=== PATIENT | male | born 1995 | race Caucasian/White ===

== ENCOUNTER 2017-10-06 17:38 | Emergency (ER) | payer BC ==
[2017-10-06] MEDS ORDERED: NA CHLORIDE 0.9% 1,000 ML ONE (17:58)
[2017-10-06 18:18] LABS: Absolute Lymphocytes (CBC) 2.4 K/uL (0.7-4.9); Absolute Monocytes 0.9 K/uL (0.1-1.3); Absolute Neutrophil 5.4 K/uL (1.8-8.0); Basophils % 0.3 % (0-1.3); Eosinophils % 7.2 % (0-4.4); Hematocrit 47.4 % (39.6-49.0); Lymphocytes % 25.7 % (15.3-44.8); MCH 30.5 pg (27.0-35.0); MCV 87.8 fL (80-100); MPV 8.5 fL (7.6-11.3); Monocytes % 9.1 % (3.3-12.3)
[2017-10-06 18:26] LABS: Barbiturates NEGATIVE; Benzodiazepines NEGATIVE; Cocaine NEGATIVE; METHAMPHETAM NEGATIVE; Opiates NEGATIVE; Phencyclidine NEGATIVE; THC Cannibis POSITIVE
[2017-10-06] MEDS ORDERED: TETANUS & DIPHTHERIA TOX,ADULT 0.5 ML VIAL ONE (18:36)
[2017-10-06 18:38] LABS: Potassium 3.5 mEq/L (3.6-5.0)
--- NOTE | 2017-10-06 18:49 | RAD REPORT ---
EXAM DESCRIPTION: RAD - Chest Pa And Lat (2 Views) - 10/06/2017 6:21 pm CLINICAL HISTORY: Chest pain. COMPARISON: 09/21/2011 FINDINGS: The lungs are clear. The heart is normal in size. No displaced fractures. IMPRESSION: No acute or concerning finding suspected.
[2017-10-06 18:55] LABS: Urine Blood NEGATIVE (NEG); Urine Glucose NEGATIVE (NEG); Urine Protein NEGATIVE (NEG); Urine pH 7.5 (5.0-7.0)
--- NOTE | 2017-10-06 19:01 | ER ---
Nurse's Notes [facility] Name: Wilder Martinez Age: 22 yrs Sex: Male : 1995 Arrival Date: 10/06/2017 Time: 17:40 Bed 28 Private MD: Diagnosis: Chest pain on breathing;Drug abuse counseling and surveillance Presentation: 10/06 17:43 Presenting complaint: Patient states: my heart has been hurting and my chest hurts in tw2 the rib area and in the back, and i have had it speed up and slow down. Transition of care: patient was not received from another setting of care. Onset of symptoms was October 06, 2017. Care prior to arrival: None. 17:43 Method Of Arrival: Ambulatory tw2 17:43 Acuity: HARPER 3 tw2 Historical: - Allergies: 17:45 No Known Allergies; tw2 - Home Meds: 17:45 None [Active]; tw2 - PMHx: 17:45 None; tw2 - PSHx: 17:45 None; tw2 - Immunization history:: Adult Immunizations unknown. - Social history:: Smoking status: Patient uses tobacco products, smokes one-half pack cigarettes per day, Patient uses street drugs, cocaine, marijuana, 3 days ago, cocaine and esctasy and mushrooms. Screenin:11 Abuse screen: Denies threats or abuse. Nutritional screening: No deficits noted. kb1 Tuberculosis screening: No symptoms or risk factors identified. Fall Risk IV access (20 points). Assessment: 18:11 General: Appears in no apparent distress. Behavior is cooperative. Pain: Complains of kb1 pain in chest Pain does not radiate. Pain began Thursday. Neuro: Level of Consciousness is awake, alert, obeys commands, Oriented to person, place, time, situation. Cardiovascular: Patient's skin is warm and dry. Respiratory: Airway is patent. GI: No signs and/or symptoms were reported involving the gastrointestinal system. : No signs and/or symptoms were reported regarding the genitourinary system. 18:42 Reassessment: Patient appears in no apparent distress at this time. Patient and/or kb1 family updated on plan of care and expected duration. Pain level reassessed. Patient is alert, oriented x 3, equal unlabored respirations, skin warm/dry/pink. Family at bedside. 19:19 Reassessment: Patient appears in no apparent distress at this time. Patient and/or kb1 family updated on plan of care and expected duration. Pain level reassessed. Patient is alert, oriented x 3, equal unlabored respirations, skin warm/dry/pink. Vital Signs: 17:45 BP 162 / 101; Pulse 70; Resp 18; Temp 98.5(O); Pulse Ox 100% on R/A; Weight 74.84 kg tw2 (R); Height 5 ft. 9 in. (175.26 cm); Pain 3/10; 18:42 BP 147 / 93; Pulse 74; Resp 18; Pulse Ox 100% ; kb1 19:19 BP 138 / 84; Pulse 71; Resp 18; Pulse Ox 98% ; kb1 17:45 Body Mass Index 24.37 (74.84 kg, 175.26 cm) tw2 ED Course: 17:40 Patient arrived in ED. as 17:43 Triage completed. tw2 17:45 Arm band placed on. tw2 17:48 Alexa Alexander, MONIK is Primary Nurse. kb1 17:52 Sweta Rouse FNP-C is PHCP. snw 17:52 Cleve Mishra MD is Attending Physician. snw 17:57 EKG done, by tractor trailer technician. reviewed by Leon Newton MD. at1 18:11 Patient has correct armband on for positive identification. Bed in low position. Call kb1 light in reach. front desk monitor on. Pulse ox on. NIBP on. 18:11 No provider procedures requiring assistance completed. Inserted saline lock: 20 gauge kb1 in left antecubital area, using aseptic technique. Blood collected. Patient maintains SpO2 saturation greater than 95% on room air. 18:16 Patient moved to radiology via wheelchair. bb2 18:16 X-ray completed. Patient tolerated procedure well. bb2 18:16 Patient moved back from radiology. bb2 18:17 Chest Pa And Lat (2 Views) XRAY In Process Unspecified. EDMS 19:28 IV discontinued, intact, bleeding controlled, No redness/swelling at site. Pressure kb1 dressing applied. Administered Medications: 18:14 Drug: NS 0.9% 1000 ml Route: IV; Rate: 1 bolus; Site: left antecubital; kb1 19:27 Follow up: IV Status: Completed infusion kb1 18:41 Drug: Tetanus-Diphtheria Toxoid Adult 0.5 ml {It Compliance Analyst: [employer]. Exp: kb1 01/29/2020. Lot #: [id number]. } Route: IM; Site: left deltoid; 19:19 Follow up: Response: No adverse reaction kb1 Outcome: 19:00 Discharge ordered by MD. azul 19:28 Discharged to home ambulatory, with family. kb1 19:28 Condition: stable 19:28 Discharge instructions given to patient, Instructed on discharge instructions, Demonstrated understanding of instructions, follow-up care, medications, Prescriptions given X 1. 19:30 Patient left the ED. kb1 Signatures: Dispatcher [employer] EDMS Sweta Rouse, APPLICATIONS SUPPORT LEAD-C APPLICATIONS SUPPORT LEAD-CsnVernell Greenberg Amanda, animal handler EKG Tat1 Chery Gutierrez, RN RN tw2 Alisa Sarah bb2 Alexa Alexander RN RN kb1
--- NOTE | 2017-10-06 19:01 | EDPHYS ---
Physician Documentation [facility] Name: Wilder Martinez Age: 22 yrs Sex: Male : 1995 Arrival Date: 10/06/2017 Time: 17:40 Bed 28 Private MD: ED Physician Cleve Mishra HPI: 10/06 21:49 This 22 yrs old Male presents to ER via Ambulatory with complaints of Chest snw Pain, Irregular Pulse. 21:49 Onset: The symptoms/episode began/occurred suddenly, 2 day(s) ago, and became snw persistent. Associated signs and symptoms: Pertinent positives: chest pain, palpitations. Modifying factors: The patient symptoms are alleviated by nothing, the patient symptoms are aggravated by movement. The patient has not experienced similar symptoms in the past. It is unknown whether or not the patient has recently seen a physician. + substance abuse over the weekend. Historical: - Allergies: 17:45 No Known Allergies; tw2 - Home Meds: 17:45 None [Active]; tw2 - PMHx: 17:45 None; tw2 - PSHx: 17:45 None; tw2 - Immunization history:: Adult Immunizations unknown. - Social history:: Smoking status: Patient uses tobacco products, smokes one-half pack cigarettes per day, Patient uses street drugs, cocaine, marijuana, 3 days ago, cocaine and esctasy and mushrooms. ROS: 21:49 Constitutional: Negative for fever, chills, and weight loss, Eyes: Negative for injury, snw pain, redness, and discharge, ENT: Negative for injury, pain, and discharge, Neck: Negative for injury, pain, and swelling, Respiratory: Negative for shortness of breath, cough, wheezing, and pleuritic chest pain, Abdomen/GI: Negative for abdominal pain, nausea, vomiting, diarrhea, and constipation, Back: Negative for injury and pain, : Negative for injury, bleeding, discharge, and swelling, MS/Extremity: Negative for injury and deformity, Skin: Negative for injury, rash, and discoloration, Neuro: Negative for headache, weakness, numbness, tingling, and seizure. 21:49 Cardiovascular: Positive for chest pain, palpitations. Exam: 21:47 Constitutional: This is a well developed, well nourished patient who is awake, alert, snw and in no acute distress. Head/Face: Normocephalic, atraumatic. Eyes: Pupils equal round and reactive to light, extra-ocular motions intact. Lids and lashes normal. Conjunctiva and sclera are non-icteric and not injected. Cornea within normal limits. Periorbital areas with no swelling, redness, or edema. ENT: Nares patent. No nasal discharge, no septal abnormalities noted. Tympanic membranes are normal and external auditory canals are clear. Oropharynx with no redness, swelling, or masses, exudates, or evidence of obstruction, uvula midline. Mucous membranes moist. Neck: Trachea midline, no thyromegaly or masses palpated, and no cervical lymphadenopathy. Supple, full range of motion without nuchal rigidity, or vertebral point tenderness. No Meningismus. Chest/axilla: Normal chest wall appearance and motion. Nontender with no deformity. No lesions are appreciated. Cardiovascular: Regular rate and rhythm with a normal S1 and S2. No gallops, murmurs, or rubs. Normal PMI, no JVD. No pulse deficits. Respiratory: Lungs have equal breath sounds bilaterally, clear to auscultation and percussion. No rales, rhonchi or wheezes noted. No increased work of breathing, no retractions or nasal flaring. Abdomen/GI: Soft, non-tender, with normal bowel sounds. No distension or tympany. No guarding or rebound. No evidence of tenderness throughout. Back: No spinal tenderness. No costovertebral tenderness. Full range of motion. MS/ Extremity: Pulses equal, no cyanosis. Neurovascular intact. Full, normal range of motion. Neuro: Awake and alert, GCS 15, oriented to person, place, time, and situation. Cranial nerves II-XII grossly intact. Motor strength 5/5 in all extremities. Sensory grossly intact. Cerebellar exam normal. Normal gait. Psych: Awake, alert, with orientation to person, place and time. Behavior, mood, and affect are within normal limits. 21:47 Skin: Appearance: normal except for affected area, injury, abrasion(s), small abrasion noted, of the bilateral legs. Vital Signs: 17:45 BP 162 / 101; Pulse 70; Resp 18; Temp 98.5(O); Pulse Ox 100% on R/A; Weight 74.84 kg tw2 (R); Height 5 ft. 9 in. (175.26 cm); Pain 3/10; 18:42 BP 147 / 93; Pulse 74; Resp 18; Pulse Ox 100% ; kb1 19:19 BP 138 / 84; Pulse 71; Resp 18; Pulse Ox 98% ; kb1 17:45 Body Mass Index 24.37 (74.84 kg, 175.26 cm) tw2 MDM: 17:54 Patient medically screened. lucio 21:48 Data reviewed: vital signs, nurses notes. Data interpreted: Pulse oximetry: on room air snw is 98 %. Interpretation: normal. Counseling: I had a detailed discussion with the patient and/or guardian regarding: the historical points, exam findings, and any diagnostic results supporting the discharge/admit diagnosis, the presence of at least one elevated blood pressure reading (>120/80) during this emergency department visit, lab results, radiology results, to return to the emergency department if symptoms worsen or persist or if there are any questions or concerns that arise at home. Special discussion: Based on the patient's history, exam, and Dx evaluation, there is no indication for emergent intervention or inpatient Tx. It is understood by the patient/guardian that if the Sx's persist or worsen they need to return immediately for re-evaluation. I have referred the patient to see his PCP for further evaluation of high blood pressure. Based on the history and exam findings, there is no indication for further emergent testing or inpatient evaluation. I discussed with the patient/guardian the need to see the primary care provider for further evaluation of the symptoms. Drug abuse counseling. 10/06 17:53 Order name: UDS snw 10/06 17:53 Order name: CBC with Diff; Complete Time: 18:25 snw 10/06 17:53 Order name: Chem 7; Complete Time: 18:43 snw 10/06 17:53 Order name: Troponin (emerg Dept Use Only); Complete Time: 18:57 snw 10/06 17:56 Order name: CPK; Complete Time: 18:43 snw 10/06 18:12 Order name: Urine Dipstick--Ancillary (enter results); Complete Time: 18:57 ag 10/06 17:53 Order name: Chest Pa And Lat (2 Views) XRAY; Complete Time: 18:57 snw 10/06 17:59 Order name: EKG Electrocardiogram EDMS Administered Medications: 18:14 Drug: NS 0.9% 1000 ml Route: IV; Rate: 1 bolus; Site: left antecubital; kb1 19:27 Follow up: IV Status: Completed infusion kb1 18:41 Drug: Tetanus-Diphtheria Toxoid Adult 0.5 ml {Opthalmic Tech: Ring. Exp: kb1 01/29/2020. Lot #: [id number]. } Route: IM; Site: left deltoid; 19:19 Follow up: Response: No adverse reaction kb1 Disposition: 10/07 07:11 Co-signature as Attending Physician, Cleve Mishra MD I agree with the assessment and the [facility] plan of care. Disposition: 10/06/17 19:00 Discharged to Home. Impression: Chest pain on breathing, Drug abuse counseling and surveillance. - Condition is Stable. - Discharge Instructions: Alcohol and Drug Addiction, Finding Treatment, Chest Wall Pain, Costochondritis. - Prescriptions for Diclofenac Sodium 75 mg Oral Tablet Sustained Release - take 1 tablet by ORAL route 2 times per day; 30 tablet. - Work release form, Medication Reconciliation Form, Thank You Letter, Antibiotic Education, Prescription Opioid Use form. - Follow up: Private Physician; When: 2 - 3 days; Reason: Recheck today's complaints, Continuance of care, Re-evaluation by your physician. Follow up: Emergency Department; When: As needed; Reason: Worsening of condition. Signatures: Dispatcher [employer] Cleve Roth MD MD cha Therrien, Shelly, E COMMERCE RETAILER-C E COMMERCE RETAILER-Csnw Chery Gutierrez RN RN tw2 Alexa Alexander RN RN kb1
[2017-10-06 19:36] VITALS: TEMP 98.5
[2017-10-06 19:38] VITALS: BP 138/84; O2SAT 98
--- NOTE | 2017-10-07 08:00 | EKG ---
Test Date: 2017-10-06 Test Time: 17:47:46 Laser Beam Machine Operator: ISACC MEASUREMENT RESULTS: Intervals: Rate: 74 VA: 138 QRSD: 92 QT: 364 QTc: 404 [place]: P: 56 VA: 138 QRS: 71 T: 55 INTERPRETIVE STATEMENTS: Normal sinus rhythm Normal ECG No previous ECG available for comparison Electronically Signed On 10-07-17 07:58:37 CDT by Minh Mari
== END 2017-10-06 19:30 | disposition home or self-care (01) ==
LOC: ER 17:38
DX: R07.9 Chest pain, unspecified (principal); F12.90 Cannabis use, unspecified, uncomplicated; F14.90 Cocaine use, unspecified, uncomplicated; F15.90 Other stimulant use, unspecified, uncomplicated; F17.210 Nicotine dependence, cigarettes, uncomplicated; Z71.51 Drug abuse counseling and surveillance of drug abuser
CPT/HCPCS: 36415; 71046; 80048; 80307; 81003; 82550; 84484; 85025; 90714; 93005; 96360; 99285; J7030

== ENCOUNTER 2019-03-27 14:48 | Emergency (ER) | payer BC ==
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
[2019-03-27] MEDS ORDERED: IBUPROFEN 400 MG TAB ONE (15:47)
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
== END 2019-03-27 16:22 | disposition home or self-care (01) ==
LOC: ER 14:48
DX: S60.221A Contusion of right hand, initial encounter (principal); W50.0XXA Accidental hit or strike by another person, initial encounter
CPT/HCPCS: 99284

== ENCOUNTER 2019-09-10 00:34 | Emergency (ER) | payer BC ==
[2019-09-10] MEDS ORDERED: LIDOCAINE 1% 20 ML MDV ONE (03:47)
[2019-09-10] MEDS ORDERED: CEFAZOLIN SODIUM 1 GM/VIAL ONE (05:39)
[2019-09-10] MEDS ORDERED: TETANUS & DIPHTHERIA TOX,ADULT 0.5 ML VIAL ONE (05:39)
[2019-09-10] MEDS ORDERED: WATER FOR INJ,STERILE 10 ML ONE (05:39)
[2019-09-10] MEDS ORDERED: IBUPROFEN 400 MG TAB ONE (05:39)
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
--- NOTE | 2019-09-10 05:43 | EDPHYS ---
Physician Documentation [facility] Name: Wilder Martinez Age: 24 yrs Sex: Male : 1995 Arrival Date: 09/10/2019 Time: 00:39 Bed 14 Private MD: ED Physician Peter Dunlap HPI: 09/09 05:33 This 24 yrs old Male presents to ER via Ambulatory with complaints of tw4 Laceration to eye. 05:33 The patient or guardian reports pain. The complaints affect the left eye. Context of tw4 injury: The problem was sustained outdoors. Onset: The symptoms/episode began/occurred today. Associated signs and symptoms: Loss of consciousness: This patient did not experience any loss of consciousness. Severity of symptoms: At their worst the symptoms were moderate, in the emergency department the symptoms are unchanged. The patient has not experienced similar symptoms in the past. Historical: - Allergies: 01:13 No Known Allergies; lp1 - Home Meds: 01:13 None [Active]; lp1 - PMHx: 01:13 None; lp1 - PSHx: 01:13 None; lp1 - Immunization history:: Adult Immunizations up to date, Last tetanus immunization: unknown. - Social history:: Smoking status: Patient reports the use of cigarette tobacco products, smokes one-half pack cigarettes per day. ROS: 05:33 Constitutional: Negative for fever, chills, and weight loss, Eyes: Negative for injury, tw4 pain, redness, and discharge, Cardiovascular: Negative for chest pain, palpitations, and edema, Respiratory: Negative for shortness of breath, cough, wheezing, and pleuritic chest pain, Abdomen/GI: Negative for abdominal pain, nausea, vomiting, diarrhea, and constipation, Back: Negative for injury and pain, MS/Extremity: Negative for injury and deformity, Neuro: Negative for headache, weakness, numbness, tingling, and seizure. 05:33 Skin: Positive for laceration(s). Exam: 05:33 Constitutional: This is a well developed, well nourished patient who is awake, alert, tw4 and in no acute distress. Chest/axilla: Normal chest wall appearance and motion. Nontender with no deformity. No lesions are appreciated. 05:33 Head/face: Noted is contusion, that is deep, of the left eye, hematoma, that is moderate, of the left eye, a laceration(s), that is superficial, 6 cm(s). Vital Signs: 01:15 BP 137 / 85; Pulse 115; Resp 18; Temp 99.3(O); Pulse Ox 98% on R/A; Weight 108.86 kg lp1 (R); Height 5 ft. 10 in. (177.80 cm); Pain 4/10; 01:20 BP 142 / 67; Pulse 102; Resp 20; Pulse Ox 100% on R/A; Pain 4/10; lw1 02:15 BP 140 / 70; Pulse 117; Resp 18; Pulse Ox 100% on R/A; sg 03:15 BP 142 / 72; Pulse 112; Resp 18; Pulse Ox 100% on R/A; sg 05:15 BP 146 / 82; Pulse 108; Resp 16; Temp 98.7(TE); Pulse Ox 99% on R/A; sg 06:10 BP 145 / 97; Pulse 114; Resp 20; Temp 99.0; Pulse Ox 100% on R/A; Pain 6/10; lw1 01:15 Body Mass Index 34.44 (108.86 kg, 177.80 cm) lp1 Ethan Coma Score: 01:20 Eye Response: spontaneous(4). Verbal Response: oriented(5). Motor Response: obeys lw1 commands(6). Total: 15. 01:20 Eye Response: spontaneous(4). Verbal Response: oriented(5). Motor Response: obeys lw1 commands(6). Total: 15. 02:15 Eye Response: spontaneous(4). Verbal Response: oriented(5). Motor Response: obeys sg commands(6). Total: 15. 03:15 Eye Response: spontaneous(4). Verbal Response: oriented(5). Motor Response: obeys sg commands(6). Total: 15. 05:15 Eye Response: spontaneous(4). Verbal Response: oriented(5). Motor Response: obeys sg commands(6). Total: 15. 05:33 Eye Response: spontaneous(4). Verbal Response: oriented(5). Motor Response: obeys tw4 commands(6). Total: 15. 05:33 Eye Response: spontaneous(4). Verbal Response: oriented(5). Motor Response: obeys tw4 commands(6). Total: 15. Trauma Score (Adult): 01:20 Eye Response: spontaneous(1); Verbal Response: oriented(1); Motor Response: obeys lw1 commands(2); Systolic BP: > 89 mm Hg(4); Respiratory Rate: 10 to 29 per min(4); Ethan Score: 15; Trauma Score: 12 01:20 Eye Response: spontaneous(1); Verbal Response: oriented(1); Motor Response: obeys lw1 commands(2); Systolic BP: > 89 mm Hg(4); Respiratory Rate: 10 to 29 per min(4); Ethan Score: 15; Trauma Score: 12 02:15 Eye Response: spontaneous(1); Verbal Response: oriented(1); Motor Response: obeys sg commands(2); Systolic BP: > 89 mm Hg(4); Respiratory Rate: 10 to 29 per min(4); [place] Score: 15; Trauma Score: 12 03:15 Eye Response: spontaneous(1); Verbal Response: oriented(1); Motor Response: obeys sg commands(2); Systolic BP: > 89 mm Hg(4); Respiratory Rate: 10 to 29 per min(4); [place] Score: 15; Trauma Score: 12 05:15 Eye Response: spontaneous(1); Verbal Response: oriented(1); Motor Response: obeys sg commands(2); Systolic BP: > 89 mm Hg(4); Respiratory Rate: 10 to 29 per min(4); [place] Score: 15; Trauma Score: 12 Laceration: 05:33 Wound Repair of 6cm ( 2.4in ) subcutaneous laceration to middle aspect of left eyebrow. tw4 Distal neuro/vascular/tendon intact. Anesthesia: Local anesthetic administered with 3 mls of 1% lidocaine. Wound prep: Moderate cleansing by me. Skin closed with 4 5-0 Prolene using interrupted sutures and sterile technique. Dressed with Bacitracin, bandaid. Patient tolerated well. MDM: 01:22 Patient medically screened. tw4 05:33 Differential diagnosis: Contusion of Hematoma on Laceration of. Data reviewed: vital tw4 signs, nurses notes. Data reviewed: radiologic studies, CT scan. Data interpreted: Pulse oximetry: Interpretation: normal. Counseling: I had a detailed discussion with the patient and/or guardian regarding: the historical points, exam findings, and any diagnostic results supporting the discharge/admit diagnosis, radiology results. Medication response: ibuprofen administration has improved the patient's pain. Response to treatment: and as a result, I will discharge patient. Special discussion: Based on the patient's history, exam and DX evaluation, there is no indication for emergent intervention or inpatient TX. It is understood by the patient/guardian that if the SXs persist or worsen they need to return immediately for re-evaluation. I discussed with the patient/guardian in detail that at this point there is no indication for admission to the hospital. It is understood, however, that if the symptoms persist or worsen the patient needs to return immediately for re-evaluation. 09/09 01:21 Order name: CT Head C Spine lp1 09/09 01:21 Order name: CT Facial Bones W/O Con lp1 Administered Medications: 05:48 Drug: Ancef 1 grams Route: IM; Site: right gluteus; mg2 05:49 Drug: Tetanus-Diphtheria Toxoid Adult 0.5 ml {Fx Artist: [employer] Exp: mg2 07/14/2021. Lot #: [id number]. } Route: IM; Site: right deltoid; 05:50 Drug: Motrin 800 mg Route: PO; mg2 05:50 Follow up: Response: No adverse reaction mg2 Disposition: 09/10/19 05:41 Discharged to Home. Impression: Concussion without loss of consciousness, Contusion of other part of head, Laceration without foreign body of other part of head. - Condition is Stable. - Discharge Instructions: Contusion, Facial Laceration, [id number], Head Injury, Adult, [id number]. - Prescriptions for Cleocin 300 mg Oral Capsule - take 1 capsule by ORAL route every 6 hours for 10 days; 40 capsule. Ibuprofen 800 mg Oral Tablet - take 1 tablet by ORAL route every 8 hours As needed take with food; 30 tablet. - Medication Reconciliation Form, Thank You Letter, Antibiotic Education, Prescription Opioid Use form. - Follow up: Private Physician; When: Upon discharge from the Emergency Department; Reason: Recheck today's complaints, Continuance of care, Re-evaluation by your physician. - Problem is new. - Symptoms have improved. Signatures: Dispatcher [employer] EDAna M Summers RN RN lp1 Peter Dunlap MD MD tw4 Storm Raymond, RN RN mg2 Milvia Crow RN RN lw1 Corrections: (The following items were deleted from the chart) 06:17 05:41 09/10/2019 05:41 Discharged to Home. Impression: Concussion without loss of lw1 consciousness; Contusion of other part of head; Laceration without foreign body of other part of head. Condition is Stable. Forms are Medication Reconciliation Form, Thank You Letter, Antibiotic Education, Prescription Opioid Use. Follow up: Private Physician; When: Upon discharge from the Emergency Department; Reason: Recheck today's complaints, Continuance of care, Re-evaluation by your physician. Problem is new. Symptoms have improved. tw4
[2019-09-10 06:26] VITALS: BP 145/97; TEMP 99; O2SAT 100
--- NOTE | 2019-09-12 10:57 | RAD REPORT ---
EXAM DESCRIPTION: CT - Facial Bones W/ Mpr - 09/10/2019 5:31 am CLINICAL HISTORY: The patient is 24 years old and is Male; DEFORMITY pain TECHNIQUE: Axial computed tomography images of the face without intravenous contrast. Sagittal and coronal reformatted images were created and reviewed. This CT exam was performed using one or more of the following dose reduction techniques: automated exposure control, adjustment of the mA and/o r kV according to patient size, and/or use of iterative reconstruction technique. COMPARISON: No relevant prior studies available. FINDINGS: BONES/JOINTS: The orbital floors and shepard are intact. The zygomatic arches and pteryg oid plates are intact. The visualized maxilla and mandible are intact. SOFT TISSUES: Left periorbital soft tissue swelling is present. ORBITS: The globes, extraocular muscles, and optic nerve complexes are within normal limits. SINUSES: Mucoperiosteal thickening of the ethmoid air cells and maxillary sinuses is present. The visualized paranasal sinuses are clear. No air-fluid levels. NASAL CAVITY/SEPTUM: The nasal bones are intact. IMPRESSION: Left facial and periorbital soft tissue swelling without underlying acute bony abnormali ty. Electronically signed by: Tana Grimes MD 09/10/2019 2:27 AM CDT Due to temporary technical issues with the PACS/Fluency reporting system, reports are being signed by the in house radiologist as a courtesy to ensure prompt reporting. The interpreting radiologist is f ully responsible for the content of the report.
--- NOTE | 2019-09-12 10:59 | RAD REPORT ---
EXAM DESCRIPTION: CT - [id number] - 09/10/2019 5:31 am CLINICAL HISTORY: The patient is 24 years old and is Male; PAIN TECHNIQUE: Axial computed tomography images of the head/brain and cervical spine without intravenous contrast. Sagittal and coronal reformatted images were created and reviewed. This CT exam was pe rformed using one or more of the following dose reduction techniques: automated exposure control, a djustment of the mA and/or kV according to patient size, and/or use of iterative reconstruction techn ique. COMPARISON: No relevant prior studies available. FINDINGS: BRAIN: Unremarkable. No hemorrhage. No significant white matter disease. No edema. VENTRICLES: Unremarkable. No ventriculomegaly. SKULL: No acute fracture. SINUSES: Unremarkable as visualized. No acute sinusitis. MASTOID AIR CELLS: Unremarkable as visualized. No mastoid effusion. VERTEBRAE: The vertebral body heights and alignment are maintained. No acute fracture. DISCS/SPINAL CANAL/NEURAL FORAMINA: The intervertebral disc spaces are maintained. No spinal can al stenosis. SOFT TISSUES: Left periorbital soft tissue swelling is present. LUNG APICES: The lung apices are clear. IMPRESSION: 1. No acute intracranial findings. 2. No acute fracture or malalignment of the cervical spine. Electronically signed by: Tana Grimes MD 09/10/2019 2:25 AM CDT Due to temporary technical issues with the PACS/Fluency reporting system, reports are being signed by the in house radiologist as a courtesy to ensure prompt reporting. The interpreting radiologist is f ully responsible for the content of the report.
== END 2019-09-10 06:17 | disposition home or self-care (01) ==
LOC: ER 00:34
PROC: 0JQ10ZZ Repair Face Subcutaneous Tissue and Fascia, Open Approach (ICD-10-PCS; principal; 2019-09-10)
DX: S06.0X0A Concussion without loss of consciousness, initial encounter (principal); Y04.2XXA Assault by strike against or bumped into by another person, initial encounter; Y92.89 Other specified places as the place of occurrence of the external cause; Z23 Encounter for immunization; F17.210 Nicotine dependence, cigarettes, uncomplicated
CPT/HCPCS: 70450; 72125; 70486; 76377; 90471; 90714; 96372; 99285; 12014; J0690

== ENCOUNTER 2021-09-20 15:00 | Emergency (ER) | payer BC ==
[2021-09-20] MEDS ORDERED: CEFAZOLIN SODIUM 1 GM/VIAL ONE (15:28)
[2021-09-20] MEDS ORDERED: LIDOCAINE 1% 20 ML MDV ONE (15:28)
[2021-09-20] MEDS ORDERED: NA CHLORIDE 0.9% 100 ML IV ONE (15:28)
[2021-09-20] MEDS ORDERED: ONDANSETRON 4 MG/2 ML VIAL ONE (15:28)
[2021-09-20] MEDS ORDERED: MORPHINE 4 MG/ML SYR ONE ×2 (15:28→17:08)
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
--- NOTE | 2021-09-20 16:29 | EDPHYS ---
Physician Documentation [facility] Name: Wilder Martinez Age: 26 yrs Sex: Male : 1995 Arrival Date: 09/20/2021 Time: 15:02 Bed 4 Private MD: ED Physician Leon Newton HPI: 09/20 15:22 This 26 yrs old Male presents to ER via Ambulatory with complaints of Laceration To rn Hand. 15:22 The patient has a laceration related to: working, from a sharp metal object, occurred rn at work, and there are no complicating factors. The laceration(s) is(are) located on the left hand. Onset: The symptoms/episode began/occurred just prior to arrival. Associated signs and symptoms: Pertinent positives: swelling and laceration. The patient has not experienced similar symptoms in the past. The patient has not recently seen a physician. Reports left hand injury and laceration while using hand crank at work, crank spun back and struck hand. REports laceration to back of left hand. No other injury.. Historical: - Allergies: 15:12 No Known Allergies; vg1 - PMHx: 15:12 None; vg1 - Immunization history:: Adult Immunizations up to date. - Social history:: Smoking status: Patient reports the use of cigarette tobacco products, denies chronic smoking, but will smoke occasionally. - Family history:: not pertinent. - Hospitalizations: : No recent hospitalization is reported. ROS: 15:22 Constitutional: Negative for fever, chills, and weight loss, MS/Extremity: + left hand rn injury and laceration Skin: + laceration to back of left hand Neuro: Negative for weakness, numbness, tingling Exam: 15:22 Constitutional: This is a well developed, well nourished patient who is awake, alert, rn and in no acute distress. MS/ Extremity: Pulses equal, no cyanosis. Neurovascular intact. 3cm linear laceration that begins on posterior left hand between 3rd/4th MCP with linear extension proximally toward wrist. Vital Signs: 15:06 BP 162 / 103; Pulse 111; Resp 18; Temp 97.3; Pulse Ox 97% on R/A; Weight 104.33 kg; ph Height 5 ft. 10 in. (177.80 cm); Pain 7/10; 16:49 BP 144 / 94; Pulse 85; Resp 17; Pulse Ox 100% on R/A; ww 15:06 Body Mass Index 33.00 (104.33 kg, 177.80 cm) ph MDM: 15:15 Patient medically screened. rn 15:58 ED course: Called Dr. Machado, no answer. . rn 16:24 ED course: Dr. Machado out of town, unable to see patient. Will have to transfer to [facility] for open fracture. . 16:32 Differential diagnosis: superficial laceration, tendon injury, open fracture. Data rn reviewed: vital signs, nurses notes, radiologic studies, plain films, and as a result, I will admit patient. Counseling: I had a detailed discussion with the patient and/or guardian regarding: the historical points, exam findings, and any diagnostic results supporting the discharge/admit diagnosis, radiology results, the need for further work-up and treatment in the hospital, the need to transfer to another facility, [facility] does not immediately have the required specialist. Response to treatment: the patient's symptoms have mildly improved after treatment, and as a result, I will admit patient. Admission orders: after a detailed discussion of the patient's condition and case, the admit orders are written by me. ED course: Accepted for admission to [facility] for open hand fracture, sent to [facility] for trauma. . 09/20 15:20 Order name: XRAY Hand LEFT 3 View; Complete Time: 15:58 rn 09/20 15:20 Order name: IV Start; Complete Time: 15:27 rn 09/20 15:20 Order name: NPO; Complete Time: 15:22 rn Administered Medications: 15:33 Drug: Zofran (Ondansetron) 4 mg Route: IVP; Site: right antecubital; vg1 16:59 Follow up: Response: No adverse reaction vg1 15:35 Drug: morphine 4 mg Route: IVP; Site: right antecubital; vg1 16:59 Follow up: Response: No adverse reaction; Pain is decreased vg1 15:44 Drug: Ancef (cefazolin) 2 grams Route: IVPB; Infused Over: 30 mins; Site: right vg1 antecubital; 16:59 Follow up: IV Status: Completed infusion; IV Intake: 100ml vg1 16:59 Not Given (Physician Discretion): Lidocaine (1 %) 1 vials 20 ml Infiltration once; to vg1 bedside 17:08 Drug: morphine 4 mg Route: IVP; Site: right antecubital; ww Disposition Summary: 09/20/21 16:28 Transfer Ordered Transfer Location: [facility] rn Reason: Higher level of care rn Condition: Stable rn Problem: new rn Symptoms: have improved rn Accepting Physician: (09/20/21 17:12) vg1 Diagnosis - Displaced fracture of base of fourth metacarpal bone, left hand, initial encounter rn for open fracture Forms: - Medication Reconciliation Form rn - SBAR form rn Signatures: Dispatcher [employer] EDLeon Jimenez MD MD rn Garcia, Victoria, RN RN vg1 Wood, Whitney, RN RN ww Corrections: (The following items were deleted from the chart) 17:00 16:28 Dr. sahni vg1 17:12 17:00 Dr. herman vg1
--- NOTE | 2021-09-20 16:29 | ER ---
Nurse's Notes [facility] Name: Wilder Martinez Age: 26 yrs Sex: Male : 1995 Arrival Date: 09/20/2021 Time: 15:02 Bed 4 Private MD: Diagnosis: Displaced fracture of base of fourth metacarpal bone, left hand, initial encounter for open fracture Presentation: 09/20 15:06 Chief complaint: Patient states: Was using a hand crank at work when it started ph spinning backwards hitting hand multiple times, laceration to L hand between middle and ring fingers. Coronavirus screen: Vaccine status: Patient reports being unvaccinated. Ebola Screen: No symptoms or risks identified at this time. Complicating Factors: There are no complicating factors for this patient. Initial Sepsis Screen: Does the patient meet any 2 criteria? No. Patient's initial sepsis screen is negative. Does the patient have a suspected source of infection? No. Patient's initial sepsis screen is negative. Risk Assessment: Do you want to hurt yourself or someone else? Patient reports no desire to harm self or others. Onset of symptoms was September 20, 2021. 15:06 Method Of Arrival: Ambulatory ph 15:06 Acuity: HARPER 2 ph Historical: - Allergies: 15:12 No Known Allergies; vg1 - PMHx: 15:12 None; vg1 - Immunization history:: Adult Immunizations up to date. - Social history:: Smoking status: Patient reports the use of cigarette tobacco products, denies chronic smoking, but will smoke occasionally. - Family history:: not pertinent. - Hospitalizations: : No recent hospitalization is reported. Screenin:27 Abuse screen: Denies threats or abuse. Denies injuries from another. Nutritional ww screening: No deficits noted. Tuberculosis screening: No symptoms or risk factors identified. Fall Risk None identified. Assessment: 15:32 General: Appears uncomfortable, Behavior is cooperative. Pain: Complains of pain in ww dorsal aspect of proximal phalanx of left middle finger, dorsal aspect of proximal phalanx of left ring finger, dorsum of left hand and palmar aspect of proximal phalanx of left ring finger. Neuro: Level of Consciousness is awake, alert, obeys commands, Oriented to person, place, time, situation, Speech is normal. Cardiovascular: Capillary refill < 3 seconds Patient's skin is warm and dry. Respiratory: Airway is patent Respiratory effort is even, unlabored, Respiratory pattern is regular, symmetrical. GI: No signs and/or symptoms were reported involving the gastrointestinal system. : No signs and/or symptoms were reported regarding the genitourinary system. EENT: No signs and/or symptoms were reported regarding the EENT system. Derm: Skin is healthy with good turgor. Musculoskeletal: Swelling present in left hand. Injury Description: Laceration sustained to dorsal aspect of proximal phalanx of left middle finger, dorsal aspect of proximal phalanx of left ring finger, dorsum of left hand and palmar aspect of proximal phalanx of left ring finger is jagged, 2.6 to 7.5 cm long, was sustained 30-60 minutes ago. 16:10 Reassessment: Patient appears in no apparent distress at this time. No changes from previously documented assessment. Patient and/or family updated on plan of care and expected duration. Pain level reassessed. 16:57 Reassessment: report given to MONIK Nielsen at [facility]. Report given to [facility]. Vital Signs: 15:06 BP 162 / 103; Pulse 111; Resp 18; Temp 97.3; Pulse Ox 97% on R/A; Weight 104.33 kg; ph Height 5 ft. 10 in. (177.80 cm); Pain 7/10; 16:49 BP 144 / 94; Pulse 85; Resp 17; Pulse Ox 100% on R/A; ww 15:06 Body Mass Index 33.00 (104.33 kg, 177.80 cm) ph ED Course: 15:02 Patient arrived in ED. mr 15:10 Triage completed. ph 15:12 Arm band placed on Patient placed in an exam room, on a stretcher. vg1 15:15 Leon Newton MD is Attending Physician. rn 15:27 Patient has correct armband on for positive identification. Bed in low position. Call light in reach. Side rails up X 1. Pulse ox on. NIBP on. 15:27 Inserted saline lock: 20 gauge in right antecubital area, using aseptic technique. ww Blood collected. 15:32 Demetra Rascon, RN is Primary Nurse. 15:44 XRAY Hand LEFT 3 View In Process Unspecified. EDMS 16:27 initiated a transfer with Mayra from the [facility]. eb 16:31 connected the hand surgeon distribution designer for [facility] ER with Dr. Newton for eb patient tranfer consultation. 16:34 administrative approval given by Mayra Armas Rn/ patient has been accepted to [facility] ER Dr. Danyell Herrera has accepted the patient in transfer/ report to be called to [phone]. 17:00 No provider procedures requiring assistance completed. Patient transferred, IV remains vg1 in place. Administered Medications: 15:33 Drug: Zofran (Ondansetron) 4 mg Route: IVP; Site: right antecubital; vg1 16:59 Follow up: Response: No adverse reaction vg1 15:35 Drug: morphine 4 mg Route: IVP; Site: right antecubital; vg1 16:59 Follow up: Response: No adverse reaction; Pain is decreased vg1 15:44 Drug: Ancef (cefazolin) 2 grams Route: IVPB; Infused Over: 30 mins; Site: right vg1 antecubital; 16:59 Follow up: IV Status: Completed infusion; IV Intake: 100ml vg1 16:59 Not Given (Physician Discretion): Lidocaine (1 %) 1 vials 20 ml Infiltration once; to 1 bedside 17:08 Drug: morphine 4 mg Route: IVP; Site: right antecubital; ww Intake: 16:59 IV: 100ml; Total: 100ml. vg1 Outcome: 16:28 ER care complete, transfer ordered by . rn 17:00 Transferred by ground EMS vg1 17:00 Condition: good 17:00 Instructed on the need for transfer. 17:00 Patient left the ED. vg1 17:12 Patient left the ED. vg1 Signatures: Dispatcher [employer] ANGELICA Kel Radha Leon Dykes MD MD rn Hall, Patricia, RN RN ph Botello, Elizabeth eb Garcia, Victoria RN MONIK 1 Demetra Rascon RN RN ww
[2021-09-20 17:06] VITALS: TEMP 97.3
[2021-09-20 17:07] VITALS: BP 144/94; O2SAT 100
== END 2021-09-20 17:12 | disposition short-term general hospital (02) ==
LOC: ER 15:00
DX: S62.315B Displaced fracture of base of fourth metacarpal bone, left hand, initial encounter for open fracture (principal); X58.XXXA Exposure to other specified factors, initial encounter
CPT/HCPCS: 96365; 73130; 96375; 99285; J2405; J0690

== ENCOUNTER 2022-06-02 19:17 | Emergency (ER) | payer BC ==
[2022-06-02 21:51] LABS: Urine Blood Negative (Negative); Urine Glucose Negative (Negative); Urine Protein 1+ (Negative); Urine Specific Gravity >=1.030 (1.005-1.030); Urine pH 5.5 (5.0-7.0)
[2022-06-02 22:05] LABS: Absolute Lymphocytes (CBC) 2.7 K/uL (0.7-4.9); Hematocrit 50.5 % (39.6-49.0); Lymphocytes % 28.7 % (15.3-44.8); MCV 88.9 fL (80-100); MPV 8.8 fL (7.6-11.3); RBC Red Blood Cell Count 5.68 M/uL (4.33-5.43)
[2022-06-02 22:06] LABS: Urine Bacteria <20 /HPF (<20); Urine Mucus 2+ /HPF (None Seen); Urine RBC <5 /HPF (None Seen)
[2022-06-02 22:14] LABS: Barbiturates NEGATIVE (NEGATIVE); Benzodiazepines NEGATIVE (NEGATIVE); Cocaine NEGATIVE (NEGATIVE); METHAMPHETAM NEGATIVE (NEGATIVE); Methadone NEGATIVE (NEGATIVE); Opiates NEGATIVE (NEGATIVE); Phencyclidine NEGATIVE (NEGATIVE); THC Cannibis POSITIVE (NEGATIVE)
[2022-06-02 22:20] LABS: Magnesium 2.2 mg/dL (1.8-2.4); Potassium 3.5 mmol/L (3.5-5.1); Troponin High Sensitivity 4.4 pg/mL (<58.9)
--- NOTE | 2022-06-02 22:32 | RAD REPORT ---
EXAM DESCRIPTION: USExtremity Venous Uni Ltd06/02/2022 9:54 pm CLINICAL HISTORY: Right leg swelling. COMPARISON: None. FINDINGS: Right common femoral, superficial femoral, popliteal and right posterior tibial veins are compressible and demonstrate augmentation. Doppler demonstrates good flow. Grayscale, color and spectral analysis performed on all vessels IMPRESSION: No evidence of deep venous thrombosis involving the right lower extremity.
[2022-06-02 22:43] LABS: Protime INR 1.02
--- NOTE | 2022-06-02 22:46 | RAD REPORT ---
EXAM DESCRIPTION: Daphnie Single View06/02/2022 10:26 pm CLINICAL HISTORY: Palpitations COMPARISON: 2017 FINDINGS: The lungs appear clear of acute infiltrate. The heart is normal size IMPRESSION: No acute abnormalities displayed
--- NOTE | 2022-06-02 23:31 | ER ---
Nurse's Notes [facility] Name: Wilder Martinez Age: 26 yrs Sex: Male : 1995 Arrival Date: 06/02/2022 Time: 19:29 Bed 27 Private MD: Diagnosis: Palpitations;Pain in right leg;UTI/ Urinary tract infection, site not specified Presentation: 06/02 21:26 Chief complaint: Patient states: he has swelling, palpitations, denies weight gain bb symptoms started about a month ago. Coronavirus screen: At this time, the client does not indicate any symptoms associated with coronavirus-19. Ebola Screen: No symptoms or risks identified at this time. Initial Sepsis Screen: Does the patient meet any 2 criteria? No. Patient's initial sepsis screen is negative. Does the patient have a suspected source of infection? No. Patient's initial sepsis screen is negative. Risk Assessment: Do you want to hurt yourself or someone else? Patient reports no desire to harm self or others. Onset of symptoms was April 2022. 21:26 Method Of Arrival: Ambulatory bb 21:26 Acuity: HARPER 3 bb Historical: - Allergies: 21:27 No Known Allergies; bb - Home Meds: 21:27 None [Active]; bb - PMHx: 21:27 None; bb - PSHx: 21:27 hand surgery; bb - Immunization history:: Client reports having NOT received the Covid vaccine. - Social history:: Smoking status: Patient reports the use of cigarette tobacco products. Screenin:28 Abuse screen: Denies threats or abuse. Nutritional screening: No deficits noted. bb Tuberculosis screening: No symptoms or risk factors identified. Fall Risk None identified. Assessment: 21:28 General: Appears in no apparent distress. Behavior is calm, cooperative. Pain: bb Complains of pain in right leg and left leg Pain currently is 2 out of 10 on a pain scale. Neuro: Level of Consciousness is awake, alert, obeys commands, Oriented to person, place, time, situation. Cardiovascular: Capillary refill < 3 seconds Patient's skin is warm and dry. Rhythm is sinus rhythm. Respiratory: Respiratory effort is even, unlabored, Respiratory pattern is regular. GI: Abdomen is non-distended. Derm: Skin is pink, warm \T\ dry. Musculoskeletal: Circulation, motion, and sensation intact. 21:55 Reassessment: Patient is alert, oriented x 3, equal unlabored respirations, skin bb warm/dry/pink. awaiting diagnostic results, family at bedside. 23:18 Reassessment: Patient is alert, oriented x 3, equal unlabored respirations, skin bb warm/dry/pink. pt resting quietly, family at bedside. 23:50 Reassessment: Patient is alert, oriented x 3, equal unlabored respirations, skin bb warm/dry/pink. pt verbalized understanding of and agrees to plan of care discharge instructions given pt ambulated with steady gait to exit accompanied by family. Vital Signs: 21:26 BP 134 / 91; Pulse 59; Resp 16 S; Temp 97.9(O); Pulse Ox 99% on R/A; Weight 104.33 kg bb (R); Height 5 ft. 10 in. (177.80 cm) (R); Pain 2/10; 21:55 BP 139 / 94; Pulse 64; Resp 16 S; Pulse Ox 97% on R/A; bb 23:12 BP 127 / 81; Pulse 61; Resp 16; Pulse Ox 99% on R/A; oe 21:26 Body Mass Index 33.00 (104.33 kg, 177.80 cm) bb ED Course: 19:29 Patient arrived in ED. bp1 19:47 Cleve El PA is PHCP. cp 19:47 Srini Combs MD is Attending Physician. cp 21:25 Erica San, MONIK is Primary Nurse. bb 21:27 Triage completed. bb 21:27 Arm band placed on Patient placed in an exam room, on a stretcher, on residential monitor, bb on pulse oximetry. EKG completed in triage. Results shown to MD. Family accompanied patient. 21:28 Patient has correct armband on for positive identification. Placed in gown. Bed in low bb position. Call light in reach. Side rails up X 1. Adult w/ patient. lunchroom monitor on. Pulse ox on. NIBP on. 21:38 Inserted saline lock: 20 gauge in right antecubital area, using aseptic technique. oe Blood collected. 21:55 Extremity Venous Uni Ltd In Process Unspecified. EDMS 22:05 Urine Microscopic Only Sent. oe 22:05 UDS Sent. oe 22:06 Basic Metabolic Panel Sent. oe 22:06 CBC with Diff Sent. oe 22:06 D-Dimer Sent. oe 22:06 Magnesium Sent. oe 22:06 PT-INR Sent. oe 22:06 Troponin HS Sent. oe 22:28 XRAY Chest (1 view) In Process Unspecified. EDMS 23:30 Mu Hargrove MD is Referral Physician. cp 23:50 No provider procedures requiring assistance completed. IV discontinued, intact, bb bleeding controlled, No redness/swelling at site. Pressure dressing applied. Administered Medications: No medications were administered Medication: 21:28 VIS not applicable for this client. bb Outcome: 23:30 Discharge ordered by . cp 23:50 Discharged to home ambulatory, with family. bb 23:50 Condition: stable 23:50 Discharge instructions given to patient, Instructed on discharge instructions, follow up and referral plans. medication usage, Demonstrated understanding of instructions, follow-up care, medications, Prescriptions given X 1. 23:51 Patient left the ED. bb Signatures: Dispatcher [employer] EDMS Erica San RN RN bb Cleve El, PA PA cp Km Moraes oe Alisa Ocampo [facility]
--- NOTE | 2022-06-02 23:31 | EDPHYS ---
Physician Documentation [facility] Name: Wilder Martinez Age: 26 yrs Sex: Male : 1995 Arrival Date: 06/02/2022 Time: 19:29 Bed 27 Private MD: ED Physician Srini Combs HPI: 06/02 21:05 This 26 yrs old Male presents to ER via Ambulatory with complaints of Leg Swelling. cp 21:05 The patient presents with swelling, enlarged veins. The complaints affect the right cp leg. Context: resulted from an unknown cause, the patient can fully bear weight, the patient is able to ambulate, without difficulty, Problem is a result from a previous injury: No. Onset: The symptoms/episode began/occurred at an unknown time. Associated signs and symptoms: Pertinent positives: calf tenderness, intermittent palpitations most noticeable at night, Pertinent negatives numbness, warmth. Treatment prior to arrival includes: no previous treatment. Patient also c/o bilateral arm discoloration. Historical: - Allergies: 21:27 No Known Allergies; bb - Home Meds: 21:27 None [Active]; bb - PMHx: 21:27 None; bb - PSHx: 21:27 hand surgery; bb - Immunization history:: Client reports having NOT received the Covid vaccine. - Social history:: Smoking status: Patient reports the use of cigarette tobacco products. ROS: 21:10 Constitutional: Negative for body aches, chills, fever, poor PO intake. cp 21:10 Cardiovascular: Positive for palpitations, Negative for chest pain, edema. cp 21:10 Respiratory: Negative for cough, shortness of breath, wheezing. 21:10 Eyes: Negative for injury, pain, redness, and discharge. cp 21:10 ENT: Negative for drainage from ear(s), ear pain, sore throat, difficulty swallowing, difficulty handling secretions. 21:10 Abdomen/GI: Negative for abdominal pain, nausea, vomiting, and diarrhea. 21:10 Back: Negative for pain at rest, pain with movement. 21:10 : Negative for urinary symptoms. 21:10 MS/extremity: Positive for pain, swelling, tenderness, of the right leg, Negative for injury or acute deformity, paresthesias. 21:10 Skin: Negative for cellulitis, rash. 21:10 Neuro: Negative for altered mental status, dizziness, headache, syncope, weakness. 21:10 All other systems are negative. Exam: 21:15 Constitutional: The patient appears in no acute distress, alert, awake, comfortable, cp non-diaphoretic, non-toxic, well developed, well nourished, overweight 21:15 Head/Face: Normocephalic, atraumatic. cp 21:15 Eyes: Periorbital structures: appear normal, Conjunctiva: normal, no exudate, no injection, Sclera: no appreciated abnormality, Lids and lashes: appear normal, bilaterally. 21:15 ENT: External ear(s): are unremarkable, Nose: is normal, Mouth: Lips: moist, Oral mucosa: pink and intact, moist, Posterior pharynx: Airway: no evidence of obstruction, patent. 21:15 Chest/axilla: Inspection: normal, Palpation: is normal, no crepitus, no tenderness. 21:15 Cardiovascular: Rate: bradycardic, Rhythm: regular, Heart sounds: murmur, not appreciated, Edema: is not appreciated, JVD: is not appreciated. 21:15 Respiratory: the patient does not display signs of respiratory distress, Respirations: normal, no use of accessory muscles, no retractions, labored breathing, is not present, Breath sounds: are clear throughout, no decreased breath sounds, no stridor, no wheezing. 21:15 Abdomen/GI: Inspection: abdomen appears normal, Palpation: abdomen is soft and non-tender, in all quadrants. 21:15 Back: pain, is absent, ROM is normal. 21:15 Skin: cellulitis, is not appreciated, no rash present. 21:15 Neuro: Orientation: to person, place \T\ time. Mentation: is normal, Motor: moves all fours, strength is normal, Sensation: is normal. 21:30 ECG was reviewed by the Attending Physician. cp Vital Signs: 21:26 BP 134 / 91; Pulse 59; Resp 16 S; Temp 97.9(O); Pulse Ox 99% on R/A; Weight 104.33 kg bb (R); Height 5 ft. 10 in. (177.80 cm) (R); Pain 2/10; 21:55 BP 139 / 94; Pulse 64; Resp 16 S; Pulse Ox 97% on R/A; bb 23:12 BP 127 / 81; Pulse 61; Resp 16; Pulse Ox 99% on R/A; oe 21:26 Body Mass Index 33.00 (104.33 kg, 177.80 cm) bb MDM: 20:47 Patient medically screened. cp 22:00 Differential diagnosis: DVT, cellulitis, cardiac arrythmia, electrolyte abnormality. cp 23:30 Data reviewed: vital signs, nurses notes, lab test result(s), EKG, radiologic studies, cp plain films, ultrasound. 23:30 Test interpretation: by ED physician or midlevel provider: ECG, plain radiologic cp studies. 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 12 21:01 Order name: Basic Metabolic Panel; Complete Time: 23:16 cp 12/ 23:16 Interpretation: Normal except: GFR 88. cp / 21:01 Order name: CBC with Diff; Complete Time: 23:16 cp 12/ 23:16 Interpretation: Normal except: RBC 5.68; HCT 50.5. cp 12/ 21:01 Order name: D-Dimer; Complete Time: 23:16 cp 12/ 23:17 Interpretation: Reviewed. 12/ 21:01 Order name: Magnesium; Complete Time: 23:16 cp 12/ 21:01 Order name: PT-INR; Complete Time: 23:16 cp / 21:01 Order name: Troponin HS; Complete Time: 23:16 cp 12/ 21:01 Order name: XRAY Chest (1 view); Complete Time: 23:16 cp 12/05 23:17 Interpretation: Report review. cp 12/ 21:01 Order name: EKG; Complete Time: 21:42 cp 12/ 21:01 Order name: UDS; Complete Time: 23:16 cp 12/05 23:17 Interpretation: THC POSITIVE; Reviewed. / 21:01 Order name: Urine Microscopic Only; Complete Time: 23:16 cp 06/02 23:41 Interpretation: Normal except: UWBC 10-20; BYST Trace. cp 06/02 21:25 Order name: Extremity Venous Uni Ltd; Complete Time: 23:16 EDMS 06/02 23:18 Interpretation: Report reviewed. cp 06/02 21:51 Order name: Urine Dipstick-Ancillary; Complete Time: 23:16 EDMS 06/02 23:17 Interpretation: Reviewed. cp 06/02 22:10 Order name: Urine Culture EDOK 06/02 21:01 Order name: Cardiac monitoring; Complete Time: 22:06 cp 06/02 21:01 Order name: EKG - Nurse/Tech; Complete Time: 21:26 cp 06/02 21:01 Order name: IV Saline Lock; Complete Time: 21:54 cp 06/02 21:01 Order name: Labs collected and sent; Complete Time: 21:54 cp 06/02 21:01 Order name: O2 Per Protocol; Complete Time: :26 cp 06/02 21:01 Order name: O2 Sat Monitoring; Complete Time: 21:26 cp 06/02 21:01 Order name: Urine Dipstick-Ancillary (obtain specimen); Complete Time: 22:05 EC:30 Rate is 60 beats/min. Rhythm is regular. OK interval is normal. QRS interval is normal. cp QT interval is normal. T waves are Inverted in leads III, aVR. Interpreted by me. Reviewed by me. Administered Medications: No medications were administered Disposition: 06/03 01:10 Co-signature as Attending Physician, Srini Combs MD I agree with the assessment and rt plan of care. Disposition Summary: 06/02/22 23:30 Discharge Ordered Location: Home cp Problem: new cp Symptoms: have improved cp Condition: Stable cp Diagnosis - Palpitations cp - Pain in right leg cp - UTI/ Urinary tract infection, site not specified cp Followup: cp - With: Mu Hargrove MD - When: 2 - 3 days - Reason: Recheck today's complaints Discharge Instructions: - Discharge Summary Sheet cp - Palpitations cp - Varicose Veins cp - Urinary Tract Infection, Adult cp Forms: - Medication Reconciliation Form cp - Thank You Letter cp - Antibiotic Education cp - Prescription Opioid Use cp Prescriptions: - cefpodoxime 200 mg Oral Tablet - take 1 tablet by ORAL route every 12 hours for 7 days with food; 14 tablet; cp Refills: 0, Product Selection Permitted Signatures: Dispatcher [facility] [employer] Erica Ayala RN RN Cleve Donaldson PA PA cp Srini Combs MD MD rt Corrections: (The following items were deleted from the chart) 06/02 21:55 21:42 Extremity Venous Uni Ltd+[email or web address] ordered. EDMS EDMS
[2022-06-03 04:19] VITALS: TEMP 97.9
[2022-06-03 04:22] VITALS: BP 127/81; O2SAT 99
--- NOTE | 2022-06-03 08:35 | EKG ---
Test Date: 2022-06-02 Test Time: 21:24:28 Ethylbenzene Converter Operator: ZBIGNIEW MEASUREMENT RESULTS: Intervals: Rate: 60 SD: 142 QRSD: 96 QT: 390 QTc: 390 Haines: P: 27 SD: 142 QRS: 35 T: 20 INTERPRETIVE STATEMENTS: Normal sinus rhythm Normal ECG Compared to ECG 10/06/2017 17:47:46 No significant changes Electronically Signed On 06-03-22 08:34:32 LINE WALKER by Farhan Vargas
== END 2022-06-02 23:51 | disposition home or self-care (01) ==
LOC: ER 19:17
DX: R00.2 Palpitations (principal); N39.0 Urinary tract infection, site not specified; M79.604 Pain in right leg; F17.210 Nicotine dependence, cigarettes, uncomplicated
CPT/HCPCS: 36415; 71045; 80048; 80307; 81003; 81015; 83735; 84484; 85025; 85379; 85610; 87086; 87088; 93005; 93971; 99284

== ENCOUNTER 2023-10-16 22:00 | Emergency (ER) | payer BC, SELFPAY ==
[2023-10-16] MEDS ORDERED: KETOROLAC 30 MG/ML INJ ONE (22:22)
[2023-10-16] MEDS ORDERED: LIDOCAINE VISCOUS 2% 10ML ORAL SOLN ONE (22:22)
[2023-10-16] MEDS ORDERED: predniSONE 20 MG TAB ONE (22:22)
[2023-10-16 22:58] LABS: SARS-CoV-2 Antigen CONTROL BLUE LINE VIS/BG OK; SARS-CoV-2 Antigen Rapid Res Negative (Negative)
--- NOTE | 2023-10-16 23:05 | EDPHYS ---
Physician Documentation [facility] Name: Wilder Nunes Age: 28 yrs Sex: Male : 1995 Arrival Date: 10/16/2023 Time: 22:00 Bed IW1 Private MD: ED Physician Eleazar German HPI: 10/15 22:20 This 28 yrs old Male presents to ER via Ambulatory with complaints of Cough, ec2 Congestion, Headache, Sore Throat. 22:20 Patient arrives today for sore throat and upper respiratory symptoms. Patient was ec2 having cough and congestion along with sore throat which she will prompted evaluation today. No fevers or chills, no nausea or vomiting, no issues with p.o. intake. Patient with no medical problems, no daily medications.. Historical: - Allergies: 22:09 No Known Allergies; bm8 - Home Meds: 22:09 None [Active]; bm8 - PMHx: 22:09 None; bm8 - PSHx: 22:09 hand surgery; bm8 - Immunization history:: Adult Immunizations up to date. - Infectious Disease History:: Denies. - Social history:: Smoking status: Patient reports the use of cigarette tobacco products, smokes one pack cigarettes per day. ROS: 22:20 Constitutional: as per hpi ec2 Exam: 22:20 Constitutional: GEN: NAD Head: atraumatic Eyes: EOMI Ears: External ears are normal. ec2 Mouth: Posterior pharyngeal erythema without exudates. No anterior cervical lymphadenopathy noted. CV: regular rate LUNGS: no respiratory distress ABD: non-distended SKIN: no evidence of rashes MSK: no evidence of trauma NEURO: moves all extremities equally Vital Signs: 22:07 BP 146 / 95; Pulse 76; Resp 20; Temp 97; Pulse Ox 97% on R/A; Weight 104.33 kg; Height bm8 5 ft. 10 in. ; Pain 4/10; 23:13 BP 127 / 84; Pulse 84; Resp 17; Temp 98; Pulse Ox 100% on R/A; Pain 0/10; bm8 22:07 Body Mass Index 33.00 (104.33 kg, 177.8 cm) bm8 22:07 Pain Scale: Adult bm8 23:13 Pain Scale: Adult bm8 [place] Coma Score: 22:26 Eye Response: spontaneous(4). Motor Response: obeys commands(6). Verbal Response: bm8 oriented(5). Total: 15. MDM: 22:12 Patient medically screened. ec2 22:20 Data reviewed: vital signs. ED course: Patient arrives today for URI signs and ec2 symptoms. Examination remarkable for posterior pharyngeal erythema., Strep, flu, COVID swab. Suspect viral infection causing patient symptoms. Will treat the patient symptoms as well. Considering strep as well. Patient otherwise systemically well-appearing in no acute distress. Will defer any more advanced testing such as lab work, CBC, BMP.. 23:03 ED course: Strep swab, flu and COVID swab negative. Suspect other viral infection. Will ec2 discharge home, prescribed steroids as needed. Return precautions given.. 10/15 22:16 Order name: Strep; Complete Time: 23:03 ec2 10/15 22:16 Order name: Influenza Screen (a \T\ B); Complete Time: 23:03 ec2 10/15 22:16 Order name: SARS RAPID; Complete Time: 23:03 ec2 10/15 22:52 Order name: Throat Culture EDMS Administered Medications: 22:25 Drug: Ketorolac IM 30 mg IM once Route: IM; Site: right vastus lateralis; bm8 23:13 Follow up: Response: No adverse reaction bm8 22:26 Drug: Viscous Lidocaine Mucous Membrane Liquid (4 %) 10 ml Mucous Membrane once Route: bm8 Mucous Membrane; 23:13 Follow up: Response: No adverse reaction bm8 22:26 Drug: predniSONE PO 40 mg PO once Route: PO; bm8 23:13 Follow up: Response: No adverse reaction bm8 Disposition Summary: 10/16/23 23:04 Discharge Ordered Notes: Location: Home ec2 Condition: Stable ec2 Diagnosis - Viral infection, unspecified ec2 Followup: ec2 - With: Private Physician - When: - Reason: Re-evaluation by your physician Discharge Instructions: - Discharge Summary Sheet ec2 - Viral Illness, Adult ec2 Forms: - Work release form ec2 - Medication Reconciliation Form ec2 - Thank You Letter ec2 - Antibiotic Education ec2 - Prescription Opioid Use ec2 - Patient Portal Instructions ec2 - Leadership Thank You Letter ec2 Prescriptions: - Prednisone 20 mg Oral Tablet - take 2 tablets ORAL route once daily for 5 days; 10 tablet; Refills: 0, Product ec2 Selection Permitted Signatures: Dispatcher [employer] Eleazar Padilla MD MD ec2 Acosta Nunes, RN RN bm8
--- NOTE | 2023-10-16 23:05 | ER ---
Nurse's Notes [facility] Name: Wilder Nunes Age: 28 yrs Sex: Male : 1995 Arrival Date: 10/16/2023 Time: 22:00 Bed IW1 Private MD: Diagnosis: Viral infection, unspecified Presentation: 10/15 22:07 Chief complaint: Patient states: i have sore throat headache, cough and congestion for bm8 about two days. it hurts to cough. Coronavirus screen: At this time, the client does not indicate any symptoms associated with coronavirus-19. Ebola Screen: Patient negative for fever greater than or equal to 101.5 degrees Fahrenheit, and additional compatible Ebola Virus Disease symptoms Patient denies exposure to infectious person. Patient denies travel to an Ebola-affected area in the 21 days before illness onset. No symptoms or risks identified at this time. Initial Sepsis Screen: Does the patient meet any 2 criteria? No. Patient's initial sepsis screen is negative. Does the patient have a suspected source of infection? No. Patient's initial sepsis screen is negative. Risk Assessment: Do you want to hurt yourself or someone else? Patient reports no desire to harm self or others. Onset of symptoms was October 14, 2023. 22:07 Method Of Arrival: Ambulatory bm8 22:07 Acuity: HARPER 4 bm8 Triage Assessment: 22:09 General: Appears in no apparent distress. comfortable, Behavior is calm, cooperative, bm8 appropriate for age. Pain: Complains of pain in throat and head Pain does not radiate. Pain currently is 4 out of 10 on a pain scale. Quality of pain is described as burning, aching, crampy. EENT: Throat is reddened bilaterally with gag reflex present. Neuro: Level of Consciousness is awake, alert, obeys commands, Oriented to person, place, time, situation, Appropriate for age. Cardiovascular: No deficits noted. Denies chest pain, Heart tones S1 S2 present Capillary refill < 3 seconds Patient's skin is warm and dry. Respiratory: Reports cough that is pain with cough Airway is patent Respiratory effort is even, unlabored, Respiratory pattern is regular, symmetrical, Breath sounds are clear bilaterally. GI: No deficits noted. No signs and/or symptoms were reported involving the gastrointestinal system. : No deficits noted. No signs and/or symptoms were reported regarding the genitourinary system. Derm: No deficits noted. No signs and/or symptoms reported regarding the dermatologic system. Historical: - Allergies: 22:09 No Known Allergies; bm8 - Home Meds: 22:09 None [Active]; bm8 - PMHx: 22:09 None; bm8 - PSHx: 22:09 hand surgery; bm8 - Immunization history:: Adult Immunizations up to date. - Infectious Disease History:: Denies. - Social history:: Smoking status: Patient reports the use of cigarette tobacco products, smokes one pack cigarettes per day. Screenin:26 [facility] ED Fall Risk Assessment (Adult) History of falling in the last 3 months, bm8 including since admission No falls in past 3 months (0 pts) Confusion or Disorientation No (0 pts) Intoxicated or Sedated No (0 pts) Impaired Gait No (0 pts) Mobility Assist Device Used No (0 pt) Altered Elimination No (0 pt) Score/Fall Risk Level 0 - 2 = Low Risk Oriented to surroundings, Maintained a safe environment, Educated pt \T\ family on fall prevention, incl call for assistance when getting out of bed. Abuse screen: Denies threats or abuse. Nutritional screening: No deficits noted. Tuberculosis screening: No symptoms or risk factors identified. Assessment: 22:26 Reassessment: see triage note. bm8 23:13 Reassessment: Patient appears in no apparent distress at this time. No changes from bm8 previously documented assessment. Patient is alert, oriented x 3, equal unlabored respirations, skin warm/dry/pink. Patient denies pain at this time. Patient states feeling better. Patient states symptoms have improved. Vital Signs: 22:07 BP 146 / 95; Pulse 76; Resp 20; Temp 97; Pulse Ox 97% on R/A; Weight 104.33 kg; Height bm8 5 ft. 10 in. ; Pain 4/10; 23:13 BP 127 / 84; Pulse 84; Resp 17; Temp 98; Pulse Ox 100% on R/A; Pain 0/10; bm8 22:07 Body Mass Index 33.00 (104.33 kg, 177.8 cm) bm8 22:07 Pain Scale: Adult bm8 23:13 Pain Scale: Adult bm8 [place] Coma Score: 22:26 Eye Response: spontaneous(4). Motor Response: obeys commands(6). Verbal Response: bm8 oriented(5). Total: 15. ED Course: 22:04 Patient arrived in ED. [id number] 22:05 Eleazar German MD is Attending Physician. ec2 22:09 Triage completed. bm8 22:09 Arm band placed on right wrist. bm8 22:17 Acosta Nunes, RN is Primary Nurse. bm8 22:26 Patient has correct armband on for positive identification. Adult w/ patient. Provided bm8 Education on: POST ER CARE. Door closed. Noise minimized. Verbal reassurance given. 22:26 No provider procedures requiring assistance completed. COVID swab sent to lab. Flu bm8 and/or RSV swab sent to lab. Strep swab sent to lab. Patient did not have IV access during this emergency room visit. Administered Medications: 22:25 Drug: Ketorolac IM 30 mg IM once Route: IM; Site: right vastus lateralis; bm8 23:13 Follow up: Response: No adverse reaction bm8 22:26 Drug: Viscous Lidocaine Mucous Membrane Liquid (4 %) 10 ml Mucous Membrane once Route: bm8 Mucous Membrane; 23:13 Follow up: Response: No adverse reaction bm8 22:26 Drug: predniSONE PO 40 mg PO once Route: PO; bm8 23:13 Follow up: Response: No adverse reaction bm8 Medication: 22:26 VIS not applicable for this client. bm8 Outcome: 23:04 Discharge ordered by . ec2 23:13 Discharged to home ambulatory, bm8 23:13 Condition: stable 23:13 Discharge instructions given to patient, Instructed on discharge instructions, follow up and referral plans. medication usage, Demonstrated understanding of instructions, follow-up care, medications, 23:14 Patient left the ED. bm8 Signatures: Flora Kaminski [email or web address] Eleazar German MD MD 2 Acosta Nunes, RN RN bm8
[2023-10-16 23:40] VITALS: BP 127/84; TEMP 98; O2SAT 100
== END 2023-10-16 23:14 | disposition home or self-care (01) ==
LOC: ER 22:00
DX: B34.9 Viral infection, unspecified (principal); Z11.52 Encounter for screening for COVID-19; F17.210 Nicotine dependence, cigarettes, uncomplicated
CPT/HCPCS: 36415; 87070; 87081; 87804; 87811; 96372; 99284; J7512